=== PATIENT | female | born 1965 | race Caucasian/White ===

== ENCOUNTER 2023-06-24 05:55 | Emergency (ER) | payer SELFPAY ==
[~2023-06-24] VITALS: Ht 162.6 cm; Wt 72.6 kg
[2023-06-24 06:03] VITALS: BP_SYST 79; PULSE 77; RESP 18; TEMP 97; O2SAT 98
== END 2023-06-24 08:59 | disposition left against medical advice (07) ==
LOC: MED 05:55
DX: M54.50 Low back pain, unspecified (principal); Z53.21 Procedure and treatment not carried out due to patient leaving prior to being seen by health care provider
CPT/HCPCS: 99281